=== PATIENT | male | born 1960 | race African-American/Black ===

== ENCOUNTER → 2017-02-01 | Outpatient (CLI) | payer MEDICARE, OTHER ==
[2016-05-12 12:16] VITALS: BP 172/73
[~2017-02-01] MED LIST: AMOX1TAB61 PO; ASPI325T70 PO; ASPI325T8 PO; ATOR10TA PO; ATOR40TA59 PO; CLOP75TA PO; CLOP75TA57 PO; HYDR25TA9 PO; INSU100C4 SQ; INSU100I13 SQ; INSU100V31 SQ; INSU100V8 SQ; LISI40TA PO; METO100T2 PO; METO50TA2 PO; OMEG1CAP27 PO; PENI500T PO; PRED20TA PO; PROAIR HFA8.5 GM INH; SITA100T PO
[2017-02-01 14:52] LABS: CREATININE 1.3 mg/dL (0.7-1.3); GFR 69.6
== END | disposition home or self-care (01) ==
LOC: LAB 14:04
PROVIDERS: ATTEND Psychiatry & Neurology Neurology
DX: R20.2 Paresthesia of skin (principal)
CPT/HCPCS: 36415; 82565; 82607; 84443; 84520

== ENCOUNTER → 2017-02-11 | Outpatient (CLI) | payer MEDICARE, OTHER ==
[2016-05-12 12:16] VITALS: BP 172/73
--- NOTE | 2017-02-11 12:58 | RAD ---
Indication: Right arm numbness and tingling for 3 weeks. Technique: Study is dated February 11, 2017. MRI evaluation of the brain was performed using sagittal T1, axial FLAIR, axial T2, axial T1, axial gradient echo, coronal T2, and axial diffusion with ADC mapping sequences. Comparison is from May 16, 2013. Findings: The ventricles and sulci are within normal limits for age. FLAIR hyperintensities in the supratentorial white matter are not specific but most suggestive of mild small vessel ischemic disease. There is a small old right basal ganglia infarct including the posterior limb of the right internal capsule. There is an old right pontine infarct. There is no restricted diffusion to suggest an acute infarct. There is no acute intracranial hemorrhage or extra-axial fluid collection. There is no mass effect or midline shift. Intracranial flow voids are preserved. Cervicomedullary junction is unremarkable. Pituitary and suprasellar region are unremarkable. There is minimal ethmoid mucosal thickening. IMPRESSION: 1. Brain parenchymal volume loss and probable small vessel ischemic disease. 2. Old right basal ganglia and right pontine infarcts. 3. No evidence of an acute infarct. Electronically signed by: Randla Akins MD (02/11/2017 12:55 PM) [id number]
== END | disposition home or self-care (01) ==
LOC: MRI 10:02
PROVIDERS: ATTEND Psychiatry & Neurology Neurology
DX: I63.8 Other cerebral infarction (principal)
CPT/HCPCS: 70551

== ENCOUNTER → 2017-09-30 | Outpatient (CLI) | payer MEDICARE, OTHER | END | disposition home or self-care (01) | LOC: LAB 10:44 | DX: E55.9 Vitamin D deficiency, unspecified (principal); R41.3 Other amnesia | CPT/HCPCS: 36415; 82306; 82652 ==

== ENCOUNTER → 2017-10-05 | Outpatient (CLI) | payer MEDICARE, OTHER | END | disposition home or self-care (01) | LOC: RT 09:08 | DX: R41.3 Other amnesia (principal) | CPT/HCPCS: 95816 ==

== ENCOUNTER → 2017-11-19 | Outpatient (CLI) | payer MEDICARE, OTHER | END | disposition home or self-care (01) | LOC: RT 10:20 | DX: R41.3 Other amnesia (principal); G40.89 Other seizures | CPT/HCPCS: 95816 ==

== ENCOUNTER 2017-11-26 19:12 | Emergency (ER) | payer MEDICARE, OTHER | END 2017-11-26 21:01 | disposition home or self-care (01) | LOC: ER 21:01 | DX: S70.01XA Contusion of right hip, initial encounter (principal); E11.9 Type 2 diabetes mellitus without complications; I10 Essential (primary) hypertension; Z86.73 Personal history of transient ischemic attack (TIA), and cerebral infarction without residual deficits; W18.39XA Other fall on same level, initial encounter; Y93.89 Activity, other specified; Y99.8 Other external cause status; Y92.89 Other specified places as the place of occurrence of the external cause | CPT/HCPCS: 73502; 99284 ==

== ENCOUNTER → 2018-02-23 | Outpatient (CLI) | payer MEDICARE, OTHER ==
[2018-01-08 09:41] VITALS: BP 142/78
[~2018-02-23] MED LIST changes: +AMLO10TA2 PO; +ASPI-482 PO; +AZEL137S3 NS; +CALC-112 PO; +CETI10TA16 PO; +CHOL500016 PO; +CYAN10002 IJ; +DICL100G18 TP; +GABA-586 PO; +GABA600T2 PO; +GUAI120L35 PO; +HYDR-2766 PO; +HYDR-2867 PO; +INSU100I17 SQ; +ISOS120T2 PO; +LISI-130 PO; -LISI40TA PO; +MAGN400C PO; +METH-37 PO; -METO100T2 PO; +METO100T7 PO; -METO50TA2 PO; +METO50TA6 PO; +NITR0.4T SL; +PANT40TA5 PO; +PYRI200T3 PO; +RANO10002 PO; +ROSUVASTATIN CA20 MG PO; +THIA100T43 PO; +TRAM50TA PO; +[UNRECOGNIZED DRUG - CODE] TD
[2018-02-23 13:03] LABS: CREATININE 1.1 mg/dL (0.7-1.3); GFR 84.1
== END | disposition home or self-care (01) ==
LOC: LAB 12:19
PROVIDERS: ATTEND Psychiatry & Neurology Neurology
DX: R20.2 Paresthesia of skin (principal); E55.9 Vitamin D deficiency, unspecified; I11.9 Hypertensive heart disease without heart failure; E11.9 Type 2 diabetes mellitus without complications; E78.5 Hyperlipidemia, unspecified; I25.118 Atherosclerotic heart disease of native coronary artery with other forms of angina pectoris; E78.00 Pure hypercholesterolemia, unspecified; K21.9 Gastro-esophageal reflux disease without esophagitis; I25.2 Old myocardial infarction; Z79.4 Long term (current) use of insulin; Z87.891 Personal history of nicotine dependence; Z95.5 Presence of coronary angioplasty implant and graft; Z86.73 Personal history of transient ischemic attack (TIA), and cerebral infarction without residual deficits; Z86.010 Personal history of colon polyps; Z82.49 Family history of ischemic heart disease and other diseases of the circulatory system; Z83.3 Family history of diabetes mellitus
CPT/HCPCS: 36415; 82565; 84520

== ENCOUNTER → 2018-02-24 | Outpatient (CLI) | payer MEDICARE, OTHER ==
[2018-01-08 09:41] VITALS: BP 142/78
--- NOTE | 2018-02-24 15:27 | RAD ---
Right lower extremity venous duplex study 02/24/2018 3:23 PM Clinical History: Right lower extremity pain Technique: Using a combination of real time ultrasound imaging and color-flow and pulse Doppler imaging techniques, including spectral analysis, graded compression and augmentation, duplex evaluation of the deep venous system of the right lower extremity was performed. Multiple images were obtained. Findings: There is no sonographic evidence of deep venous thrombosis involving the visualized deep venous structures of the right lower extremity Impression: No evidence of deep venous thrombosis involving the right lower extremity Electronically signed by: Tutu Corea MD (02/24/2018 3:24 PM) [id number]
== END | disposition home or self-care (01) ==
LOC: US 13:00
PROVIDERS: ATTEND Psychiatry & Neurology Neurology
DX: M79.604 Pain in right leg (principal); E11.9 Type 2 diabetes mellitus without complications; I10 Essential (primary) hypertension; E78.00 Pure hypercholesterolemia, unspecified; I25.10 Atherosclerotic heart disease of native coronary artery without angina pectoris; K21.9 Gastro-esophageal reflux disease without esophagitis; Z87.891 Personal history of nicotine dependence
CPT/HCPCS: 93971

== ENCOUNTER → 2018-03-04 | Outpatient (CLI) | payer MEDICARE, OTHER ==
[2018-01-08 09:41] VITALS: BP 142/78
--- NOTE | 2018-03-04 19:15 | EEG ---
DATE OF SERVICE: 03/04/2018 EEG NUMBER: [id number]. OBJECTIVE: This is a 57-year-old male patient with history of memory loss and cognitive function issues. EEG was requested to evaluate cerebral activity and help rule out subclinical seizures. METHODS: Twenty electrodes were applied according to the international 10-20 electrode placement system. EKG monitoring, hyperventilation, intermittent photic stimulation, monopolar and bipolar montages are routinely utilized. The record was obtained on a digital system with video monitoring. FINDINGS: 1. Background: The patient was recorded in the awake and drowsy states. No sleep state was recorded. The overall background amplitude is 10-30 microvolts. A posterior dominant rhythm of 8-10 Hz is observed. 2. Abnormalities: No specific epileptiform discharge or electrographic seizure is seen. No focal or diffuse slowing. 3. Activation: Hyperventilation was performed with fair efforts and normal response. Intermittent photic stimulation was performed with photic driving. No specific epileptiform discharge or electrographic seizure induced by hyperventilation or intermittent photic stimulation. IMPRESSION: This EEG is a normal study for the awake and drowsy states. No sleep state was recorded. No focal, lateralizing, specific epileptiform discharge or electrographic seizure is seen. JEMAL TO MD DR: PARDEEP/bettie JOB#: [id number] / [id number] MALATHI
== END | disposition home or self-care (01) ==
LOC: RT 09:38
PROVIDERS: ATTEND Psychiatry & Neurology Neurology
DX: R41.3 Other amnesia (principal); I25.2 Old myocardial infarction; I11.9 Hypertensive heart disease without heart failure; E11.9 Type 2 diabetes mellitus without complications; E78.5 Hyperlipidemia, unspecified; E78.00 Pure hypercholesterolemia, unspecified; E66.9 Obesity, unspecified; K21.9 Gastro-esophageal reflux disease without esophagitis; I25.118 Atherosclerotic heart disease of native coronary artery with other forms of angina pectoris; Z87.891 Personal history of nicotine dependence; Z86.010 Personal history of colon polyps; Z79.4 Long term (current) use of insulin; Z86.39 Personal history of other endocrine, nutritional and metabolic disease; Z83.3 Family history of diabetes mellitus; Z82.49 Family history of ischemic heart disease and other diseases of the circulatory system
CPT/HCPCS: 95816

== ENCOUNTER → 2018-09-19 | Outpatient (CLI) | payer MEDICARE, OTHER ==
[2018-01-08 09:41] VITALS: BP 142/78
[~2018-09-19] MED LIST changes: +ACYC800T PO; +ALBU2.5V8 INH; -AMLO10TA2 PO; +AMLO10TA8 PO; -GABA-586 PO; +GABA300C18 PO; -GABA600T2 PO; +GABA600T7 PO; +HYDR-2145 PO; -HYDR-2766 PO; +HYDR-2769 PO; +HYDR-3164 PO; -HYDR25TA9 PO; -ISOS120T2 PO; +ISOS120T4 PO; -PROAIR HFA8.5 GM INH; +TRIA15OI TP
[2018-09-19 11:06] LABS: GFR 93.5; URIC ACID 4.6 mg/dL (3.5-7.2)
--- NOTE | 2018-09-19 13:03 | RAD ---
Right foot, 3 views, 09/19/2018: HISTORY: Great toe pain No fracture or dislocation is identified. No significant arthritic change is evident. A small inferior calcaneal spur is noted. IMPRESSION: No acute right foot abnormality is detected. Electronically signed by: Anibal Martel MD (09/19/2018 1:01 PM) [facility]
== END | disposition home or self-care (01) ==
LOC: RAD 10:18
PROVIDERS: ATTEND Psychiatry & Neurology Neurology
DX: M77.31 Calcaneal spur, right foot (principal); M79.674 Pain in right toe(s); R20.2 Paresthesia of skin
CPT/HCPCS: 36415; 73630; 82565; 84520; 84550; 85651

== ENCOUNTER 2018-11-16 12:48 | Emergency (ER) | payer OTHER ==
[~2018-11-16] VITALS: Ht 175.3 cm; Wt 114.8 kg
[~2018-11-16 12:48] MED LIST changes: -ACYC800T PO; -HYDR-3164 PO; -TRIA15OI TP
[2018-11-16 13:11] VITALS: BP 199/88
[2018-11-16] MEDS ORDERED: ACYC800T PO (13:32)
[2018-11-16] MEDS ORDERED: HYDR-3164 PO (13:32)
[2018-11-16] MEDS ORDERED: TRIA15OI TP ×2 (13:32→13:34)
--- NOTE | 2018-11-16 13:34 | PHYS DOC ---
Past Medical History Past Medical History: Diabetes-Type II, Hypertension, Stroke, TIA Additional Past Medical Histor: AMI 7 stents Past Surgical History: Other Additional Past Surgical Histo: 7 stents Alcohol Use: None Drug Use: None Adult General Chief Complaint Chief Complaint: SKIN RASH/ABSCESS [facility] HPI Patient is a 58 year old female with history of hypertension, diabetes type 2, stroke, who presents to the ED today with a painful rash on his chest that began 2 days ago. Patient denies any fever. Denies any new contacts. Review of Systems Review of Systems Constitutional: Denies fever or chills [] Eyes: Denies change in visual acuity, redness, or eye pain [] HENT: Denies nasal congestion or sore throat [] Respiratory: Denies cough or shortness of breath [] Cardiovascular: No additional information not addressed in HPI [] GI: Denies abdominal pain, nausea, vomiting, bloody stools or diarrhea [] : Denies dysuria or hematuria [] Musculoskeletal: Denies back pain or joint pain [] Integument: Reports rash on the chest Neurologic: Denies headache, focal weakness or sensory changes [] All other systems were reviewed and found to be within normal limits, except as documented in this note. Allergies Allergies Allergies Coded Allergies Type Severity Reaction Last Updated Verified No Known Drug Allergies 11/01/13 No Physical Exam Physical Exam Constitutional: Well developed, well nourished, no acute distress, non-toxic appearance. [] HENT: Normocephalic, atraumatic, bilateral external ears normal, oropharynx moist, no oral exudates, nose normal. [] Eyes: PERRLA, EOMI, conjunctiva normal, no discharge. [] Neck: Normal range of motion, no tenderness, supple, no stridor. [] Cardiovascular:Heart rate regular rhythm, no murmur [] Lungs & Thorax: Bilateral breath sounds clear to auscultation [] Abdomen: Bowel sounds normal, soft, no tenderness, no masses, no pulsatile masses. [] Skin: Small amount of erythematous papular rash on patient's suspicious for shingles Back: No tenderness, no CVA tenderness. [] Extremities: No tenderness, no cyanosis, no clubbing, ROM intact, no edema. [] Neurologic: Alert and oriented X 3, normal motor function, normal sensory function, no focal deficits noted. [] Psychologic: Affect normal, judgement normal, mood normal. [] Current Patient Data Vital Signs Vital Signs Date Time Temp Pulse Resp B/P (MAP) Pulse Ox O2 Delivery O2 Flow Rate FiO2 11/16/18 13:11 97.7 76 16 199/88 (125) 97 Room Air 97.7 EKG EKG [] Radiology/Procedures Radiology/Procedures [] Course & Med Decision Making Course & Med Decision Making Pertinent Labs and Imaging studies reviewed. (See chart for details) This is a 58-year-old male patient presenting to the ED today with a rash on the chest suspicious of shingles. Will be discharged on acyclovir, triamcinolone cream and Chamisal for pain. Follow-up with PCP in 1-2 weeks. Lis Disclaimer Lucion Disclaimer This electronic medical record was generated, in whole or in part, using a voice recognition dictation system. Departure Departure Impression: Primary Impression: Shingles Disposition: HOME, SELF-CARE Condition: STABLE Referrals: DARLEEN MALONEY WEATHER STRIPPER (PCP) Follow-up in 1-2 weeks Patient Instructions: Shingles, [id number] Additional Instructions: You were evaluated in the emergency room for a rash suspicious of shingles. Take the prescribed medications as ordered. Follow-up with your doctor in 1-2 weeks. Scripts Triamcinolone Acetonide (TRIAMCINOLONE ACETONIDE 0.1% OINT) 15 Gm Oint...g. 1 ISA TP BID for WOUND CARE, #1 TUBE Prov: HUBERT RAY APRN 11/16/18 Hydrocodone/Apap 5-325 (NORCO 5-325 TABLET) 1 Each Tablet 1 TAB PO Q6HRS, #10 TAB Prov: HUBERT RAY APRN 11/16/18 Triamcinolone Acetonide (TRIAMCINOLONE ACETONIDE 0.1% OINT) 15 Gm Oint...g. 1 ISA TP BID for WOUND CARE, #1 TUBE Prov: HUBERT RAY APRN 11/16/18 Acyclovir (ACYCLOVIR) 800 Mg Tablet 1 TAB PO 5XDAY, #50 TAB Prov: HUBERT RAY APRN 11/16/18 Problem Qualifiers Primary Impression: Shingles Herpes zoster complications: without complications Qualified Codes: B02.9 - Zoster without complications HUBERT RAY APRN November 16, 2018 13:34
== END 2018-11-16 13:49 | disposition home or self-care (01) ==
LOC: ER 12:48
DX: B02.9 Zoster without complications (principal); I10 Essential (primary) hypertension; E11.9 Type 2 diabetes mellitus without complications; Z95.5 Presence of coronary angioplasty implant and graft; I25.2 Old myocardial infarction; Z86.73 Personal history of transient ischemic attack (TIA), and cerebral infarction without residual deficits
CPT/HCPCS: 99283

== ENCOUNTER 2019-08-07 01:16 | Emergency (ER) | payer OTHER, MEDICARE ==
[~2019-08-07] VITALS: Ht 175.3 cm; Wt 110.0 kg
[~2019-08-07 01:16] MED LIST changes: +ACYC800T PO; +HYDR-3164 PO; -NITR0.4T SL; +NITR0.4T24 SL; -PANT40TA5 PO; +PANT40TA77 PO; +TRIA15OI TP
[2019-08-07] MEDS ORDERED: IV NORMAL SALINE 1000ML BAG 1,000 ML IV SCH (01:45)
[2019-08-07 01:52] LABS: BASO # 0.1 x10^3/uL (0.0-0.2); BASO % 1 % (0-3); EOS # 0.1 x10^3/uL (0.0-0.7); EOS % 2 % (0-3); HEMOGLOBIN 12.2 g/dL (13.0-17.5); LYMPH # 1.1 x10^3/uL (1.0-4.8); LYMPH % 16 % (24-48); MEAN CORPUSCULAR HEMOGLOBIN 27 pg (25-35); MEAN CORPUSCULAR HGB CONC 33 g/dL (31-37); MEAN CORPUSCULAR VOLUME 81 fL (79-100); MONO # 0.8 x10^3/uL (0.0-1.1); MONO % 13 % (0-9); NEUT # 4.4 x10^3/uL (1.8-7.7); NEUT % 68 % (31-73); PLATELET COUNT 228 x10^3/uL (140-400); RED BLOOD COUNT 4.56 x10^6/uL (4.30-5.70); RED CELL DISTRIBUTION WIDTH 13.9 % (11.5-14.5); WHITE BLOOD COUNT 6.5 x10^3/uL (4.0-11.0)
[2019-08-07 02:02] LABS: CALCIUM 9.4 mg/dL (8.5-10.1); CREATININE 1.2 mg/dL (0.7-1.3); GFR 75.5
[2019-08-07 02:08] LABS: ALBUMIN 3.4 g/dL (3.4-5.0); TOTAL BILIRUBIN 0.2 mg/dL (0.2-1.0); TOTAL PROTEIN 6.9 g/dL (6.4-8.2)
--- NOTE | 2019-08-07 02:17 | RAD ---
EXAM: AP View of the chest DATE: 08/07/2019 1:40 AM INDICATION: Dyspnea COMPARISON: No Prior FINDINGS: The heart is not enlarged. Mediastinal and hilar contours are normal. No focal parenchymal airspace opacity. No pleural effusion or pneumothorax. IMPRESSION: 1. No radiographic evidence for acute cardiopulmonary process. Electronically signed by: Raphael Hicks MD (08/07/2019 2:14 AM) [id number]
[2019-08-07 02:57] VITALS: BP 162/78
[2019-08-07] MEDS ORDERED: GUAI120L35 PO (03:06)
[2019-08-07] MEDS ORDERED: AZIT250T PO (03:06)
--- NOTE | 2019-08-07 03:06 | PHYS DOC ---
Past Medical History Past Medical History: Diabetes-Type II, Hypertension, [place], Stroke, TIA, Other Additional Past Medical Histor: PROSTATE CANCER WITH RADIATION Past Surgical History: Other Additional Past Surgical Histo: 7 CARDIAC STENTS Alcohol Use: None Drug Use: None Adult General Chief Complaint Chief Complaint: SHORTNESS OF BREATH HPI HPI Patient is a 59 year old male who presents with complaint of shortness of breath that started at around midnight tonight. Patient states that he had woken up and had a coughing spell and had difficulty catching his breath. Patient states these been having this cough for the last couple of weeks. He hasn't really had any shortness of breath until tonight. He states that for the most part of the cough is been nonproductive. He denies any fever. He denies any chest pain. He also denies any lower extremity pain. He states that the cough is worse in the shortness of breath and nothing really improved it. He does indicate that he is feeling quite a bit better at this time.[] Review of Systems Review of Systems Constitutional: Denies fever or chills [] Respiratory: Positive coughing and shortness of breath [] Cardiovascular: No additional information not addressed in HPI [] GI: Denies abdominal pain, nausea, vomiting or diarrhea [] Integument: Denies rash or skin lesions [] Neurologic: Denies headache, focal weakness or sensory changes [] All other systems were reviewed and found to be within normal limits, except as documented in this note. Current Medications Current Medications Current Medications Medications (Trade) Dose Ordered Sig/Gladys Start Time Stop Time Status Last Admin Dose Admin Sodium Chloride 1,000 ml @ 1,000 mls/hr Q1H 08/07/19 01:45 08/07/19 02:44 DC 08/07/19 01:58 1,000 MLS/HR Allergies Allergies Allergies Coded Allergies Type Severity Reaction Last Updated Verified No Known Drug Allergies 11/01/13 No Physical Exam Physical Exam Constitutional: Well developed, well nourished, no acute distress, non-toxic appearance. [] HENT: Normocephalic, atraumatic, bilateral external ears normal, oropharynx moist, no oral exudates, nose normal. [] Eyes: PERRLA, EOMI, conjunctiva normal, no discharge. [] Neck: Normal range of motion, no tenderness, supple, no stridor. [] Cardiovascular: Regular rate and rhythm[] Lungs & Thorax: Bilateral breath sounds clear to auscultation [] Abdomen: Bowel sounds normal, soft, no tenderness. [] Skin: Warm, dry, no erythema, no rash. [] Extremities: No tenderness, no cyanosis, no clubbing, ROM intact, no edema. [] Neurologic: Alert and oriented X 3, no focal deficits noted. [] Current Patient Data Vital Signs Vital Signs Date Time Temp Pulse Resp B/P (MAP) Pulse Ox O2 Delivery O2 Flow Rate FiO2 08/07/19 01:20 97.6 69 20 171/70 (103) 100 Room Air 97.6 Lab Values Laboratory Tests Test 08/07/19 01:45 White Blood Count 6.5 x10^3/uL (4.0-11.0) Red Blood Count 4.56 x10^6/uL (4.30-5.70) Hemoglobin 12.2 g/dL (13.0-17.5) L Hematocrit 37.0 % (39.0-53.0) L Mean Corpuscular Volume 81 fL (79-100) Mean Corpuscular Hemoglobin 27 pg (25-35) Mean Corpuscular Hemoglobin Concent 33 g/dL (31-37) Red Cell Distribution Width 13.9 % (11.5-14.5) Platelet Count 228 x10^3/uL (140-400) Neutrophils (%) (Auto) 68 % (31-73) Lymphocytes (%) (Auto) 16 % (24-48) L Monocytes (%) (Auto) 13 % (0-9) H Eosinophils (%) (Auto) 2 % (0-3) Basophils (%) (Auto) 1 % (0-3) Neutrophils # (Auto) 4.4 x10^3/uL (1.8-7.7) Lymphocytes # (Auto) 1.1 x10^3/uL (1.0-4.8) Monocytes # (Auto) 0.8 x10^3/uL (0.0-1.1) Eosinophils # (Auto) 0.1 x10^3/uL (0.0-0.7) Basophils # (Auto) 0.1 x10^3/uL (0.0-0.2) Sodium Level 137 mmol/L (136-145) Potassium Level 4.0 mmol/L (3.5-5.1) Chloride Level 103 mmol/L (98-107) Carbon Dioxide Level 27 mmol/L (21-32) Anion Gap 7 (6-14) Blood Urea Nitrogen 14 mg/dL (8-26) Creatinine 1.2 mg/dL (0.7-1.3) Estimated GFR (Cockcroft-Gault) 75.5 BUN/Creatinine Ratio 12 (6-20) Glucose Level 286 mg/dL (70-99) H Calcium Level 9.4 mg/dL (8.5-10.1) Total Bilirubin 0.2 mg/dL (0.2-1.0) Aspartate Amino Transferase (AST) 14 U/L (15-37) L Alanine Aminotransferase (ALT) 21 U/L (16-63) Alkaline Phosphatase 93 U/L (46-116) Troponin I Quantitative < 0.017 ng/mL (0.000-0.055) ZS-Msi-I-Type Natriuretic Peptide 36 pg/mL (0-124) Total Protein 6.9 g/dL (6.4-8.2) Albumin 3.4 g/dL (3.4-5.0) Albumin/Globulin Ratio 1.0 (1.0-1.7) Laboratory Tests 08/07/19 01:45 Laboratory Tests 08/07/19 01:45 EKG EKG [] Radiology/Procedures Radiology/Procedures [] Impressions: PROCEDURE: PORTABLE CHEST 1V EXAM: AP View of the chest DATE: 08/07/2019 1:40 AM INDICATION: Dyspnea COMPARISON: No Prior FINDINGS: The heart is not enlarged. Mediastinal and hilar contours are normal. No focal parenchymal airspace opacity. No pleural effusion or pneumothorax. IMPRESSION: 1. No radiographic evidence for acute cardiopulmonary process. Electronically signed by: Raphael Hicks MD (08/07/2019 2:14 AM) [facility] Course & Med Decision Making Course & Med Decision Making Pertinent Labs and Imaging studies reviewed. (See chart for details) [] Dragon Disclaimer Dragon Disclaimer This electronic medical record was generated, in whole or in part, using a voice recognition dictation system. Departure Departure Impression: Primary Impression: Bronchitis Disposition: 01 HOME, SELF-CARE Condition: STABLE Referrals: UNKNOWN PCP NAME (PCP) Patient Instructions: Acute Bronchitis Scripts Guaifenesin/Codeine Phosphate (Codeine-Guaifen 10-100 mg/5 ml) 120 Ml Liquid 5 ML PO PRN Q6HRS PRN for cough and congestion MDD 20 Milliliter(s) for 6 Days, #120 ML 0 Refills Prov: MAUREEN PORTILLO Jr. DO 08/07/19 Azithromycin (ZITHROMAX) 250 Mg Tablet 1 PKG PO UD, #6 TAB Prov: MAUREEN PORTILLO Jr. DO 08/07/19 MAUREEN PORTILLO Jr. DO Aug 07, 2019 03:06
[2019-08-07] MEDS ORDERED: methylPREDNISolone SOD SUCC PF 125 MG/2 ML VIAL. IV ONE (03:30)
--- NOTE | 2019-08-07 07:39 | EKG ---
[facility] [address] [place] [address] Test Date: 2019-08-07 Test Time: 01:52:43 Pat Name: NELIA RYAN Department: Room: Gender: M [employer]: : [id number] Requested By: MAUREEN PORTILLO Order Number: [id number] Reading MD: Measurements Intervals Lydia Rate: 63 P: 25 ID: [id number] QRS: -18 QRSD: 78 T: 30 QT: 404 QTc: 416 Interpretive Statements SINUS RHYTHM LEFTWARD AXIS QRS(T) CONTOUR ABNORMALITY CONSIDER ANTEROSEPTAL MYOCARDIAL DAMAGE POSSIBLY ABNORMAL ECG RI6.01 No previous ECG available for comparison
== END 2019-08-07 03:28 | disposition home or self-care (01) ==
LOC: ER 01:16
DX: J40 Bronchitis, not specified as acute or chronic (principal); R06.02 Shortness of breath; R05 Cough; E11.9 Type 2 diabetes mellitus without complications; I10 Essential (primary) hypertension; I25.2 Old myocardial infarction; Z86.73 Personal history of transient ischemic attack (TIA), and cerebral infarction without residual deficits; Z98.890 Other specified postprocedural states; Z85.46 Personal history of malignant neoplasm of prostate
CPT/HCPCS: 36415; 71045; 80053; 83880; 84484; 85025; 93005; 96374; 99285; J2930; J7030

== ENCOUNTER 2019-09-04 11:02 | Emergency (ER) | payer MEDICARE, OTHER ==
[~2019-09-04] VITALS: Ht 175.3 cm; Wt 110.0 kg
[~2019-09-04 11:02] MED LIST changes: +AZIT250T PO
[2019-09-04 12:05] VITALS: BP 140/64
--- NOTE | 2019-09-04 13:06 | RAD ---
EXAM: Chest, 2 views. HISTORY: Cough. COMPARISON: 08/07/2019. FINDINGS: 2 views of chest are obtained. There is no infiltrate, pleural effusion or pneumothorax. There is a stable prominent cardiac silhouette. IMPRESSION: No acute pulmonary finding. Electronically signed by: Annabelle Ag MD (09/04/2019 1:03 PM) [id number]
[2019-09-04 13:29] LABS: INFLUENZA A PATIENT NEGATIVE (NEGATIVE); INFLUENZA B PATIENT NEGATIVE (NEGATIVE)
[2019-09-04] MEDS ORDERED: ALBU2.5V8 IH (13:44)
[2019-09-04] MEDS ORDERED: BENZ100C PO (13:44)
--- NOTE | 2019-09-04 13:45 | PHYS DOC ---
Past Medical History Past Medical History: Diabetes-Type II, Hypertension, CT, Stroke, TIA, Other Additional Past Medical Histor: PROSTATE CANCER WITH RADIATION (HUBERT RAY APRN) Past Surgical History: Other Additional Past Surgical Histo: 7 CARDIAC STENTS (HUBERT RAY APRN) Smoking Status: Former Smoker Alcohol Use: None Drug Use: None (HUBERT RAY APRN) Adult General Chief Complaint Chief Complaint: COUGH HPI HPI Patient is a 59 year old male who presents to the ED today with a cough for 1 week. Patient denies any fever. Denies any nasal congestion. (JEFFERYHUBERT Antunez APRN) Review of Systems Review of Systems Constitutional: Denies fever or chills [] Eyes: Denies change in visual acuity, redness, or eye pain [] HENT: Denies nasal congestion or sore throat [] Respiratory: Reports cough, denies shortness of breath [] Cardiovascular: No additional information not addressed in HPI [] GI: Denies abdominal pain, nausea, vomiting, bloody stools or diarrhea [] : Denies dysuria or hematuria [] Musculoskeletal: Denies back pain or joint pain [] Integument: Denies rash or skin lesions [] Neurologic: Denies headache, focal weakness or sensory changes [] All other systems were reviewed and found to be within normal limits, except as documented in this note. (HUBERT RAY APRN) Allergies Allergies Allergies Coded Allergies Type Severity Reaction Last Updated Verified No Known Drug Allergies 11/01/13 No (BUZZ HEARN MD) Physical Exam Physical Exam Constitutional: Well developed, well nourished, no acute distress, non-toxic appearance. [] HENT: Normocephalic, atraumatic, bilateral external ears normal, oropharynx moist, no oral exudates, nose normal. [] Eyes: PERRLA, EOMI, conjunctiva normal, no discharge. [] Neck: Normal range of motion, no tenderness, supple, no stridor. [] Cardiovascular:Heart rate regular rhythm, no murmur [] Lungs & Thorax: Bilateral breath sounds clear to auscultation [] Abdomen: Bowel sounds normal, soft, no tenderness, no masses, no pulsatile mercedes s. [] Skin: Warm, dry, no erythema, no rash. [] Back: No tenderness, no CVA tenderness. [] Extremities: No tenderness, no cyanosis, no clubbing, ROM intact, no edema. [] Neurologic: Alert and oriented X 3, normal motor function, normal sensory function, no focal deficits noted. [] Psychologic: Affect normal, judgement normal, mood normal. [] (HUBERT RAY APRN) Current Patient Data Vital Signs Vital Signs Date Time Temp Pulse Resp B/P (MAP) Pulse Ox O2 Delivery O2 Flow Rate FiO2 09/04/19 12:05 98.0 72 16 140/64 (89) 99 Room Air 98.0 (BUZZ HEARN MD) Lab Values Laboratory Tests Test 09/04/19 12:15 Influenza Type A Antigen Negative (NEGATIVE) Influenza Type B Antigen Negative (NEGATIVE) (BUZZ HEARN MD) EKG EKG [] (HUBERT RAY APRN) Radiology/Procedures Radiology/Procedures []PROCEDURE: CHEST PA & LATERAL EXAM: Chest, 2 views. HISTORY: Cough. COMPARISON: 08/07/2019. FINDINGS: 2 views of chest are obtained. There is no infiltrate, pleural effusion or pneumothorax. There is a stable prominent cardiac silhouette. IMPRESSION: No acute pulmonary finding. Electronically signed by: Annabelle Wilburn MD (09/04/2019 1:03 PM) [id number] DICTATED and SIGNED BY: ANNABELLE WILBURN MD DATE: 09/04/19 1303 (HUBERT RAY APRN) Course & Med Decision Making Course & Med Decision Making Pertinent Labs and Imaging studies reviewed. (See chart for details) This is a 59-year-old male patient presenting to the ED today with a cough for 1 week. Patient's vitals are stable, chest x-ray is negative, negative influenza A or B. Discharged with albuterol inhaler and Tessalon Perles. Instructed to follow-up with the PCP in the course of this week or next week. (HUBERT RAY APRN) Course & Med Decision Making Staff Physician Addendum: I was working in the ER during the course of this patient's visit. I was available for consultation as needed, but I was not directly involved in the care of this patient. (BUZZ HEARN MD) Dragon Disclaimer Dragon Disclaimer This electronic medical record was generated, in whole or in part, using a voice recognition dictation system. (HUBERT RAY APRN) Departure Departure Impression: Primary Impression: Cough Disposition: 01 HOME, SELF-CARE Condition: STABLE Referrals: ORLANDO MATTA MD (PCP) follow up in 1-2 weeks Patient Instructions: Cough, Adult, [id number] Additional Instructions: You were seen in the Ed for a cough, your chest x-ray is negative, for any acute findings. Take the prescribed medications as ordered. Please follow-up with your own doctor in one week Scripts Prednisone (PREDNISONE) 50 Mg Tablet 1 TAB PO DAILY, #5 TAB Prov: HUBERT RAY APRN 09/04/19 Benzonatate (TESSALON PERLE) 100 Mg Capsule 1 CAP PO TID, #30 CAP Prov: HUBERT RAY APRN 09/04/19 Albuterol Sulfate (Proair Hfa) 8.5 Gm Hfa.aer.ad 2 PUFF IH PRN Q4-6HRS PRN for wheezing for 21 Days, #1 INHALER 0 Refills Prov: HUBERT RAY APRN 09/04/19 HUBERT RAY APRN Sep 04, 2019 13:45 BUZZ HEARN MD Sep 04, 2019 17:02
[2019-09-04] MEDS ORDERED: PRED50TA PO (13:49)
== END 2019-09-04 14:02 | disposition home or self-care (01) ==
LOC: ER 11:02
DX: R05 Cough (principal); E11.9 Type 2 diabetes mellitus without complications; I10 Essential (primary) hypertension; I25.2 Old myocardial infarction; Z86.73 Personal history of transient ischemic attack (TIA), and cerebral infarction without residual deficits; Z85.46 Personal history of malignant neoplasm of prostate; Z87.891 Personal history of nicotine dependence; Z98.890 Other specified postprocedural states
CPT/HCPCS: 71046; 87804; 99284

== ENCOUNTER → 2019-09-11 | Outpatient (CLI) | payer MEDICARE, OTHER ==
[2019-09-04 12:05] VITALS: BP 140/64
[~2019-09-11] MED LIST changes: +ALBU2.5V8 IH; +BENZ100C PO; +PRED50TA PO
[2019-09-11 10:17] LABS: ALBUMIN 3.2 g/dL (3.4-5.0); ALBUMIN/GLOBULIN RATIO 0.9 (1.0-1.7); CALCIUM 9.1 mg/dL (8.5-10.1); CREATININE 1.1 mg/dL (0.7-1.3); GFR 83.5; POTASSIUM 4.3 mmol/L (3.5-5.1); TOTAL BILIRUBIN 0.3 mg/dL (0.2-1.0); TOTAL PROTEIN 6.8 g/dL (6.4-8.2)
== END ==
LOC: LAB 09:41
PROVIDERS: ATTEND Psychiatry & Neurology Neurology
DX: R20.2 Paresthesia of skin (principal)
CPT/HCPCS: 36415; 80053

== ENCOUNTER 2020-02-27 08:14 | Emergency (ER) | payer MEDICARE, OTHER ==
[~2020-02-27] VITALS: Ht 175.3 cm; Wt 115.5 kg
[~2020-02-27 08:14] MED LIST changes: -DICL100G18 TP; +DICL100G54 TP
[2020-02-27 08:50] VITALS: BP 147/72
[2020-02-27] MEDS ORDERED: ORPHENADRINE CITRATE 60 MG/2 ML VIAL. IM ONE (09:30)
[2020-02-27] MEDS ORDERED: KETOROLAC 60 MG/2 ML VIAL. IM ONE (09:30)
[2020-02-27] MEDS ORDERED: NAPR-514 PO (09:33)
[2020-02-27] MEDS ORDERED: METH-38 PO (09:33)
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
== END 2020-02-27 09:46 | disposition home or self-care (01) ==
LOC: ER 08:14
DX: S29.012A Strain of muscle and tendon of back wall of thorax, initial encounter (principal); E11.9 Type 2 diabetes mellitus without complications; E78.00 Pure hypercholesterolemia, unspecified; I10 Essential (primary) hypertension; I25.10 Atherosclerotic heart disease of native coronary artery without angina pectoris; I25.2 Old myocardial infarction; Z86.73 Personal history of transient ischemic attack (TIA), and cerebral infarction without residual deficits; Z95.5 Presence of coronary angioplasty implant and graft; V43.52XA Car driver injured in collision with other type car in traffic accident, initial encounter; Y92.488 Other paved roadways as the place of occurrence of the external cause; Y93.89 Activity, other specified; Y99.8 Other external cause status
CPT/HCPCS: 96372; 99284; J1885; J2360

== ENCOUNTER → 2021-05-29 | Emergency (ER) | payer MEDICARE, OTHER ==
[~2021-05-29] VITALS: Ht 176.5 cm; Wt 119.4 kg
[~2021-05-29] MED LIST changes: -ACYC800T PO; +ACYC800T88 PO; +AMLO-187 PO; -AMLO10TA8 PO; +METH-38 PO; +NAPR-514 PO
[2021-05-29 17:40] VITALS: BP 202/89
--- NOTE | 2021-05-29 18:18 | PHYS DOC ---
Past Medical History Past Medical History: CAD, Cancer, CVA, Diabetes-Type II, High Cholesterol, Hypertension, [place], Stroke, TIA, Other Additional Past Medical Histor: PROSTATE CANCER WITH RADIATION Past Surgical History: Other Additional Past Surgical Histo: cardiac cath with 7 stents Smoking Status: Never Smoker Alcohol Use: None Drug Use: None General Adult EDM: Chief Complaint: BREAST PAIN/INJURY HPI: HPI: Patient is a 61-year-old male who presents to the emergency department today for left-sided chest pain that started when he was doing pull-ups today at the gym. Patient believes that he just "pulled a chest muscle". Patient rates pain 8 out of 10. Is worse with movement and with palpation, no radiation of pain. He states that he took a hydro for his pain. He describes it as a sharp pain. He denies shortness of breath, nausea, vomiting, dizziness, syncope, fevers, cough. Patient has a history of [place] with stent placement as well as hypertension. His blood pressure is elevated in the ER today. Review of Systems: Review of Systems: 14 body systems of the review of systems have been reviewed. See HPI for p ertinent positive and negative responses, otherwise all other systems are negative, nonpertinent or noncontributory Heart Score: C/O Chest Pain: Yes HEART Score for Chest Pain: HEART Score for Chest Pain Response (Comments) Value History Slighlty/Non-Suspicious 0 ECG Normal 0 Age >45 - < 65 1 Risk Factors >3 Risk Factors or Hx CAD 2 Total 3 Risk Factors: Risk Factors: DM, Current or recent (<one month) smoker, HTN, HLP, family history of CAD, obesity. Risk Scores: Score 0 - 3: 2.5% MACE over next 6 weeks - Discharge Home Score 4 - 6: 20.3% MACE over next 6 weeks - Admit for Clinical Observation Score 7 - 10: 72.7% MACE over next 6 weeks - Early Invasive Strategies Allergies: Allergies: Allergies Coded Allergies Type Severity Reaction Last Updated Verified No Known Drug Allergies 02/27/20 No Physical Exam: PE: Constitutional: Well developed, well nourished, no acute distress, non-toxic appearance. [] HENT: Normocephalic, atraumatic, bilateral external ears normal, oropharynx moist, no oral exudates, nose normal. [] Eyes: PERRL, EOMI, conjunctiva normal, no discharge. [] Neck: Normal range of motion, no stridor Cardiovascular:Heart rate regular rhythm, no murmur, left-sided substernal chest pain with palpation [] Lungs & Thorax: Bilateral breath sounds clear to auscultation [] Abdomen: Bowel sounds normal, soft, no tenderness, no masses, no pulsatile masses. [] Skin: Warm, dry, no erythema, no rash. [] Back: Normal range of motion Extremities: No tenderness, no cyanosis, no clubbing, ROM intact, no edema. [] Neurologic: Alert and oriented X 3, normal motor function, normal sensory function, no focal deficits noted. [] Psychologic: Affect normal, judgement normal, mood normal. [] EKG: EKG: [] EKG performed by ER staff at 1802 shows sinus rhythm with a rate of 66, QTC of 419, read by Dr. Lei at 1810 Radiology/Procedures: Radiology/Procedures: [] Course & Med Decision Making: Course & Med Decision Making Pertinent Labs and Imaging studies reviewed. (See chart for details) [] Patient presents to the emergency department for left-sided chest pain that occurred when he was working out at the gym. Patient has a history of hypertension, [place] with stent placement. I advised patient that we should obtain blood work, EKG and chest x-ray. It is necessary to rule out a cardiac cause for his chest pain. Patient believes that he just "pulled a chest muscle". I told patient that I could not safely discharge him without performing a cardiac work-up. Patient refused. I informed patient that he would need to sign out AGAINST MEDICAL ADVICE if he is refusing the recommended treatment. Patient signed out AGAINST MEDICAL ADVICE. He is alert and oriented and capable of making his own decisions. He is aware of the benefits of receiving a work-up and the risks associated with IV AGAINST MEDICAL ADVICE. Dragon Disclaimer: Lis Disclaimer: This electronic medical record was generated, in whole or in part, using a voice recognition dictation system. Departure Departure Impression: Primary Impression: Chest pain Qualified Codes: R07.9 - Chest pain, unspecified Disposition: LEFT AGAINST MEDICAL ADVICE Condition: GUARDED Referrals: ORLANDO MATTA MD (PCP) DINA VELOZ PLATEN [employer] FEEDER May 29, 2021 18:18
--- NOTE | 2021-05-29 18:18 | EKG ---
[facility] [address] [place] [address] Test Date: 2021-05-29 Test Time: 18:02:46 Pat Name: NELIA RYAN Department: Room: Gender: M Cleaning Specialist: : [id number] Requested By: DINA VELOZ Order Number: [id number] Reading MD: Sean Hood Measurements Intervals [place] Rate: 66 P: FL: QRS: -26 QRSD: 76 T: 32 QT: 398 QTc: 419 Interpretive Statements SINUS RHYTHM LEFTWARD AXIS Electronically Signed On 06-01-2021 7:30:25 [employer] by Sean Hood
--- NOTE | 2021-05-29 19:12 | RAD ---
EXAM: CHEST ONE VIEW. HISTORY: Chest pain. COMPARISON: 09/04/2019. FINDINGS: A frontal view of the chest is obtained. There are no confluent infiltrates. There is no pneumothorax or pleural effusion. The heart is not en larged. IMPRESSION: 1. No confluent infiltrates. Electronically signed by: Mckenzie Cadena MD (05/29/2021 7:09 PM) [id number]
== END | disposition left against medical advice (07) ==
LOC: ER 17:28
DX: R07.2 Precordial pain (principal); I25.10 Atherosclerotic heart disease of native coronary artery without angina pectoris; E11.9 Type 2 diabetes mellitus without complications; E78.00 Pure hypercholesterolemia, unspecified; I10 Essential (primary) hypertension; I25.2 Old myocardial infarction; Z86.73 Personal history of transient ischemic attack (TIA), and cerebral infarction without residual deficits
CPT/HCPCS: 71045; 93005; 99283